=== PATIENT | male | born 1975 | race Two or more races ===

== ENCOUNTER 2018-07-24 14:24 | Inpatient (IN) | payer MEDICAID ==
[~2018-07-24] VITALS: Ht 183.5 cm; Wt 103.0 kg
[2018-07-24 15:17] LABS: BASOPHILS % (AUTO) 0.4 % (0.0-2.0); EOSINOPHILS % (AUTO) 1.1 % (1.0-6.0); HEMATOCRIT 40.8 % (41-53); HEMOGLOBIN 13.8 g/dL (13.5-17.5); LYMPHOCYTES # (AUTO) 1.8 K/uL (1.0-4.8); LYMPHOCYTES % (AUTO) 27.1 % (22.0-44.0); MEAN CORPUSCULAR HEMOGLOBIN 31.8 pg (26.0-34.0); MEAN CORPUSCULAR HGB CONC 33.7 G/dL (31.0-37.0); MEAN CORPUSCULAR VOLUME 94 fL (80-100); MONOCYTES # (AUTO) 0.6 K/uL (0.1-1.0); MONOCYTES % (AUTO) 8.5 % (2.0-9.0); NEUTROPHILS # (AUTO) 4.1 K/uL (1.8-7.7); NEUTROPHILS % (AUTO) 62.9 % (40.0-70.0); PLATELET COUNT (AUTO) 226 K/uL (150-450); RED BLOOD CELL COUNT(AUTO) 4.33 MIL/uL (4.50-5.90); RED CELL DISTRIBUTION WIDTH 13.1 % (11.5-14.5)
[2018-07-24 15:26] LABS: CALCIUM, TOTAL 8.7 mg/dL (8.8-10.5); CREATININE 2.24 mg/dL (0.60-1.30); POTASSIUM 4.1 mmol/L (3.5-5.1)
[2018-07-24 15:32] LABS: ALBUMIN 3.8 g/dL (3.4-5.0); BILIRUBIN,TOTAL 0.7 mg/dL (0.1-1.0); TOTAL PROTEIN, SERUM 7.3 g/dL (6.4-8.2)
[2018-07-24] MEDS ORDERED: SODIUM CHLORIDE 0.9% 1,000 ML IV ONE ×4 (17:45→20:15)
[2018-07-24 18:29] LABS: APPEARANCE,URINE TURBID (CLEAR); GLUCOSE, URINE (UA) 100 mg/dL (NEGATIVE); KETONES,URINE 40 mg/dL (NEGATIVE); LEUKOCYTE ESTERASE ,URINE LARGE (NEGATIVE); NITRATE,URINE POSITIVE (NEGATIVE); OCCULT BLOOD,URINE LARGE (NEGATIVE); PROTEIN,URINE SEE CONFIRM (NEGATIVE)
[2018-07-24 18:41] LABS: BILIRUBIN,URINE PRELIM. POSITIVE (NEGATIVE)
[2018-07-24 18:45] LABS: SULFOSALICYLIC ACID,URINE 4+ (Negative)
[2018-07-24 18:47] LABS: RBC,URINE Full Field /HPF (0-2)
[2018-07-24 18:49] LABS: BACTERIA,URINE Few /HPF (None Seen); SQUAMOUS EPITHELIAL CELL,UR Rare /LPF (None Seen)
[2018-07-24] MEDS ORDERED: ACETAMINOPHEN 325 MG TABLET PO PRN (20:15)
[2018-07-24] MEDS ORDERED: MAGNESIUM HYDROXIDE SUSPENSION 30 ML UDCUP PO PRN (20:15)
[2018-07-24] MEDS ORDERED: CefTRIAXone 1 GM/DEXTROSE 50 ML IV ONE (20:15)
[2018-07-24] MEDS: TAMSULOSIN HCL 0.4 MG CAPSULE PO SCH (21:00)
[2018-07-24] MEDS: DOCUSATE SODIUM 100 MG CAPSULE PO SCH (21:00)
[2018-07-24 21:49] VITALS: BP 114/66
[2018-07-24 23:44] VITALS: BP 102/59
[2018-07-25 04:57] VITALS: BP 101/53
[2018-07-25 06:45] LABS: ANION GAP 8 mmol/L (8-16); CALCIUM, TOTAL 8.1 mg/dL (8.8-10.5); CARBON DIOXIDE 25 mmol/L (22-29); CHLORIDE 106 mmol/L (98-107); CREATININE 1.04 mg/dL (0.60-1.30); GLOMERULAR FILTR. RATE CALC > 60 mL/min (>60); GLUCOSE,RANDOM 96 mg/dL (70-110); POTASSIUM 3.5 mmol/L (3.5-5.1); SODIUM SERUM 139 mmol/L (136-145); UREA NITROGEN, BLOOD 21 mg/dL (7-18)
[2018-07-25 07:10] VITALS: BP 107/71
[2018-07-25 08:31] LABS: BASOPHILS % (AUTO) 0.4 % (0.0-2.0); EOSINOPHILS % (AUTO) 1.7 % (1.0-6.0); HEMATOCRIT 38.5 % (41-53); HEMOGLOBIN 12.6 g/dL (13.5-17.5); LYMPHOCYTES # (AUTO) 1.6 K/uL (1.0-4.8); LYMPHOCYTES % (AUTO) 30.6 % (22.0-44.0); MEAN CORPUSCULAR HEMOGLOBIN 31.6 pg (26.0-34.0); MEAN CORPUSCULAR HGB CONC 32.7 G/dL (31.0-37.0); MEAN CORPUSCULAR VOLUME 97 fL (80-100); MONOCYTES # (AUTO) 0.5 K/uL (0.1-1.0); NEUTROPHILS # (AUTO) 2.9 K/uL (1.8-7.7); NEUTROPHILS % (AUTO) 57.3 % (40.0-70.0); PLATELET COUNT (AUTO) 217 K/uL (150-450); RED BLOOD CELL COUNT(AUTO) 3.99 MIL/uL (4.50-5.90); RED CELL DISTRIBUTION WIDTH 13.2 % (11.5-14.5)
[2018-07-25] MEDS: TAMSULOSIN HCL 0.4 MG CAPSULE PO SCH ×2 (08:48→19:59)
[2018-07-25] MEDS: DOCUSATE SODIUM 100 MG CAPSULE PO SCH ×2 (08:49→19:59)
[2018-07-25] MEDS: FAMOTIDINE 20 MG TABLET PO SCH (08:49)
[2018-07-25 11:00] VITALS: BP 113/68
[2018-07-25] MEDS ORDERED: SODIUM CHLORIDE 0.9% 500 ML IV ONE ×4 (11:00→20:53)
[2018-07-25] MEDS ORDERED: MORPHINE SULFATE 2 MG/ML SYRINGE IVP PRN (13:30)
[2018-07-25] MEDS: OxyCODONE HCL/ACETAMINOPHEN 5-325 MG TABLET PO PRN ×2 (14:10→19:59)
[2018-07-25 15:10] VITALS: BP 132/67
[2018-07-25] MEDS: MORPHINE SULFATE 2 MG/ML SYRINGE IVP PRN (18:06)
[2018-07-25] MEDS ORDERED: OPIUM/BELLADONNA ALK 60 MG-16.2 MG RECTAL SUPPOSITORY PR PRN (18:30)
[2018-07-25 19:00] VITALS: BP 124/70
[2018-07-25] MEDS: CefTRIAXone 1 GM/DEXTROSE 50 ML IV SCH (19:59)
[2018-07-26] VITALS (7 sets, daily range): BP systolic 108–129; BP diastolic 57–71
[2018-07-26 06:24] LABS: BASOPHILS % (AUTO) 0.3 % (0.0-2.0); EOSINOPHILS % (AUTO) 1.6 % (1.0-6.0); HEMATOCRIT 38.3 % (41-53); LYMPHOCYTES # (AUTO) 1.6 K/uL (1.0-4.8); LYMPHOCYTES % (AUTO) 28.1 % (22.0-44.0); MEAN CORPUSCULAR HEMOGLOBIN 32.2 pg (26.0-34.0); MEAN CORPUSCULAR HGB CONC 33.9 G/dL (31.0-37.0); MEAN CORPUSCULAR VOLUME 95 fL (80-100); MONOCYTES # (AUTO) 0.5 K/uL (0.1-1.0); MONOCYTES % (AUTO) 9.1 % (2.0-9.0); NEUTROPHILS # (AUTO) 3.5 K/uL (1.8-7.7); NEUTROPHILS % (AUTO) 60.9 % (40.0-70.0); PLATELET COUNT (AUTO) 213 K/uL (150-450); RED BLOOD CELL COUNT(AUTO) 4.03 MIL/uL (4.50-5.90); RED CELL DISTRIBUTION WIDTH 13.2 % (11.5-14.5)
[2018-07-26 06:35] LABS: ANION GAP 8 mmol/L (8-16); CALCIUM, TOTAL 8.4 mg/dL (8.8-10.5); CARBON DIOXIDE 27 mmol/L (22-29); CHLORIDE 104 mmol/L (98-107); CREATININE 1.08 mg/dL (0.60-1.30); GLOMERULAR FILTR. RATE CALC > 60 mL/min (>60); GLUCOSE,RANDOM 99 mg/dL (70-110); POTASSIUM 3.5 mmol/L (3.5-5.1); SODIUM SERUM 139 mmol/L (136-145); UREA NITROGEN, BLOOD 14 mg/dL (7-18)
[2018-07-26] MEDS: OxyCODONE HCL/ACETAMINOPHEN 5-325 MG TABLET PO PRN (08:28)
[2018-07-26] MEDS: DOCUSATE SODIUM 100 MG CAPSULE PO SCH ×2 (08:29→19:45)
[2018-07-26] MEDS: TAMSULOSIN HCL 0.4 MG CAPSULE PO SCH ×2 (08:29→19:45)
[2018-07-26] MEDS: FAMOTIDINE 20 MG TABLET PO SCH (08:29)
[2018-07-26] MEDS ORDERED: SODIUM CHLORIDE 0.9% 100 ML ONE (08:38)
[2018-07-26] MEDS ORDERED: IOVERSOL 350 MG/ML 100 ML VIAL ONE (08:38)
[2018-07-26] MEDS: MORPHINE SULFATE 2 MG/ML SYRINGE IVP PRN (10:26)
[2018-07-26] MEDS: CefTRIAXone 1 GM/DEXTROSE 50 ML IV SCH (19:44)
[2018-07-27 04:42] VITALS: BP 120/60
[2018-07-27 07:49] VITALS: BP 107/68
[2018-07-27] MEDS: TAMSULOSIN HCL 0.4 MG CAPSULE PO SCH ×2 (09:00→20:50)
[2018-07-27] MEDS: DOCUSATE SODIUM 100 MG CAPSULE PO SCH ×2 (09:00→20:50)
[2018-07-27] MEDS: FAMOTIDINE 20 MG TABLET PO SCH (09:00)
[2018-07-27] MEDS ORDERED: MEPERIDINE-PF 25 MG/ML VIAL IVP PRN (10:30)
[2018-07-27] MEDS ORDERED: FentaNYL CITRATE-PF 100 MCG/2 ML VIAL IVP PRN (10:30)
[2018-07-27] MEDS ORDERED: RINGERS SOLUTION,LACTATED 1,000 ML IV ONE ×2 (10:35→12:37)
[2018-07-27] MEDS ORDERED: MEPERIDINE-PF 25 MG/ML VIAL ONE (12:35)
[2018-07-27] MEDS ORDERED: HYDROmorphone 2 MG/ML SYRINGE ONE (12:35)
[2018-07-27] MEDS: HYDROmorphone 2 MG/ML SYRINGE IVP PRN ×2 (12:39→12:49)
[2018-07-27] MEDS: OxyCODONE HCL/ACETAMINOPHEN 5-325 MG TABLET PO PRN ×2 (14:29→20:50)
[2018-07-27 16:19] VITALS: BP 113/68
[2018-07-27] MEDS: MORPHINE SULFATE 2 MG/ML SYRINGE IVP PRN (17:54)
[2018-07-27 18:03] LABS: BASOPHILS % (AUTO) 0.1 % (0.0-2.0); EOSINOPHILS % (AUTO) 0 % (1.0-6.0); HEMATOCRIT 41.5 % (41-53); HEMOGLOBIN 13.6 g/dL (13.5-17.5); LYMPHOCYTES # (AUTO) 0.9 K/uL (1.0-4.8); LYMPHOCYTES % (AUTO) 6.8 % (22.0-44.0); MEAN CORPUSCULAR HEMOGLOBIN 31.5 pg (26.0-34.0); MEAN CORPUSCULAR HGB CONC 32.7 G/dL (31.0-37.0); MEAN CORPUSCULAR VOLUME 96 fL (80-100); MONOCYTES # (AUTO) 0.2 K/uL (0.1-1.0); MONOCYTES % (AUTO) 1.9 % (2.0-9.0); NEUTROPHILS # (AUTO) 11.6 K/uL (1.8-7.7); NEUTROPHILS % (AUTO) 91.2 % (40.0-70.0); PLATELET COUNT (AUTO) 275 K/uL (150-450); RED BLOOD CELL COUNT(AUTO) 4.31 MIL/uL (4.50-5.90); RED CELL DISTRIBUTION WIDTH 13.1 % (11.5-14.5)
[2018-07-27] MEDS ORDERED: OXYGEN THERAPY IH SCH (20:00)
[2018-07-27 20:03] VITALS: BP 105/75
[2018-07-27] MEDS: CefTRIAXone 1 GM/DEXTROSE 50 ML IV SCH (20:50)
[2018-07-27 23:52] VITALS: BP 123/56
[2018-07-28 04:33] VITALS: BP 115/76
[2018-07-28] MEDS ORDERED: SUCCINYLCHOLINE CHLORIDE 20 MG/ML 10 ML VIAL IVP ONE (05:16)
[2018-07-28] MEDS ORDERED: FentaNYL CITRATE-PF 100 MCG/2 ML VIAL IVP ONE (05:16)
[2018-07-28] MEDS ORDERED: PROPOFOL 1% 20 ML VIAL IVP ONE (05:16)
[2018-07-28] MEDS ORDERED: ONDANSETRON HCL 4 MG/2 ML VIAL IVP ONE (05:16)
[2018-07-28] MEDS ORDERED: DEXAMETHASONE SOD PHOS 4 MG/ML VIAL IVP ONE (05:16)
[2018-07-28] MEDS ORDERED: LIDOCAINE/PF 2% 5 ML VIAL IM ONE (05:16)
[2018-07-28] MEDS ORDERED: MORPHINE SULFATE/PF 0.5 MG/ML 10 ML AMP IVP ONE (05:16)
[2018-07-28] MEDS ORDERED: MIDAZOLAM HCL 2 MG/2 ML VIAL IVP ONE (05:16)
[2018-07-28] MEDS: OxyCODONE HCL/ACETAMINOPHEN 5-325 MG TABLET PO PRN (06:50)
[2018-07-28 08:08] VITALS: BP 107/59
[2018-07-28] MEDS: FAMOTIDINE 20 MG TABLET PO SCH (08:30)
[2018-07-28] MEDS: DOCUSATE SODIUM 100 MG CAPSULE PO SCH ×2 (08:30→20:06)
[2018-07-28] MEDS: TAMSULOSIN HCL 0.4 MG CAPSULE PO SCH ×2 (08:30→20:06)
[2018-07-28 11:20] VITALS: BP 114/74
[2018-07-28 15:24] VITALS: BP 141/75
[2018-07-28] MEDS ORDERED: BISACODYL 10 MG RECTAL RECTAL SUPPOSITORY PR PRN (18:15)
[2018-07-28 19:51] VITALS: BP 103/63
[2018-07-28] MEDS: CefTRIAXone 1 GM/DEXTROSE 50 ML IV SCH (20:07)
[2018-07-28 23:27] VITALS: BP 113/65
[2018-07-29 05:30] VITALS: BP 116/77
[2018-07-29 07:35] VITALS: BP 114/78
[2018-07-29] MEDS: TAMSULOSIN HCL 0.4 MG CAPSULE PO SCH (08:20)
[2018-07-29] MEDS: FAMOTIDINE 20 MG TABLET PO SCH (08:20)
[2018-07-29] MEDS: DOCUSATE SODIUM 100 MG CAPSULE PO SCH (08:20)
[2018-07-29 11:12] VITALS: BP 102/61
[2018-07-29] MEDS ORDERED: CIPR-278 PO (12:59)
== END 2018-07-29 16:20 | disposition home or self-care (01) | DRG 446 ==
LOC: EDBD 14:25 → EMS 14:25 → 4E 20:20
PROVIDERS: ADMIT Internal Medicine; ATTEND Internal Medicine
PROC: 0TCB8ZZ Extirpation of Matter from Bladder, Via Natural or Artificial Opening Endoscopic (ICD-10-PCS; 2018-07-27)
PROC: 0T5C8ZZ Destruction of Bladder Neck, Via Natural or Artificial Opening Endoscopic (ICD-10-PCS; 2018-07-27)
PROC: 0T7D8ZZ Dilation of Urethra, Via Natural or Artificial Opening Endoscopic (ICD-10-PCS; 2018-07-27)
PROC: 0TBC8ZZ Excision of Bladder Neck, Via Natural or Artificial Opening Endoscopic (ICD-10-PCS; principal; 2018-07-27 11:00)
DX: D49.4 Neoplasm of unspecified behavior of bladder (principal); N17.9 Acute kidney failure, unspecified; N30.91 Cystitis, unspecified with hematuria; R33.9 Retention of urine, unspecified; R31.9 Hematuria, unspecified; N35.911 Unspecified urethral stricture, male, meatal; M43.06 Spondylolysis, lumbar region; Z80.0 Family history of malignant neoplasm of digestive organs; Z87.442 Personal history of urinary calculi
CPT/HCPCS: 74176; 74177; 84153; 87086; 88307; 88341; 88342; 96365; 96375; G0378; J0330; J0696; J1100; J1170; J2175; J2250; J2270; J2274; J2405; J2704; J3010; J3490; J7030; J7040; J7050; J7120